=== PATIENT | female | born 1945 | race Caucasian/White ===

== ENCOUNTER 2022-03-01 08:50 | Outpatient (CLI) | payer MEDICARE | END 2022-03-01 08:51 | disposition home or self-care (01) | LOC: CSHMAMMO 08:50 | PROVIDERS: ATTEND Family Medicine | DX: Z12.31 Encounter for screening mammogram for malignant neoplasm of breast (principal); Z80.3 Family history of malignant neoplasm of breast | CPT/HCPCS: 77063; 77067 ==

== ENCOUNTER 2022-03-04 08:25 | Outpatient (CLI) | payer MEDICARE ==
[2022-03-04] MEDS ORDERED: Iopamidol 300 61% 100 ML VIAL FS ONE (14:59)
== END 2022-03-04 08:26 | disposition home or self-care (01) ==
LOC: CSHCT 08:25
PROVIDERS: ATTEND Family Medicine
DX: R10.12 Left upper quadrant pain (principal); K76.0 Fatty (change of) liver, not elsewhere classified; K76.89 Other specified diseases of liver; K57.30 Diverticulosis of large intestine without perforation or abscess without bleeding
CPT/HCPCS: 74177; 82565; Q9967

== ENCOUNTER 2022-04-02 08:22 | Outpatient (CLI) | payer MEDICARE | END 2022-04-02 08:23 | disposition home or self-care (01) | LOC: CSHULT 08:22 | PROVIDERS: ATTEND Family Medicine | DX: K80.70 Calculus of gallbladder and bile duct without cholecystitis without obstruction (principal); N83.201 Unspecified ovarian cyst, right side; K83.8 Other specified diseases of biliary tract; Z78.0 Asymptomatic menopausal state | CPT/HCPCS: 76705; 76856 ==

== ENCOUNTER 2023-03-14 09:41 | Outpatient (CLI) | payer MEDICARE | END 2023-03-14 09:42 | disposition home or self-care (01) | LOC: CSHMAMMO 09:41 | PROVIDERS: ATTEND Family Medicine | DX: Z12.31 Encounter for screening mammogram for malignant neoplasm of breast (principal); Z80.3 Family history of malignant neoplasm of breast | CPT/HCPCS: 77063; 77067 ==

== ENCOUNTER 2023-07-21 08:58 | Outpatient (CLI) | payer MEDICARE | END 2023-07-21 08:59 | disposition home or self-care (01) | LOC: CSHMAMMO 08:58 | PROVIDERS: ATTEND Family Medicine | DX: Z13.820 Encounter for screening for osteoporosis (principal); M85.89 Other specified disorders of bone density and structure, multiple sites; N95.9 Unspecified menopausal and perimenopausal disorder | CPT/HCPCS: 77080 ==

== ENCOUNTER 2024-03-16 09:46 | Outpatient (CLI) | payer MEDICARE | END 2024-03-16 09:47 | disposition home or self-care (01) | LOC: CSHMAMMO 09:46 | PROVIDERS: ATTEND Family Medicine | DX: Z12.31 Encounter for screening mammogram for malignant neoplasm of breast (principal); Z80.3 Family history of malignant neoplasm of breast | CPT/HCPCS: 77063; 77067 ==

== ENCOUNTER 2025-03-28 12:03 | Outpatient (CLI) | payer MEDICARE | END 2025-03-28 12:04 | disposition home or self-care (01) | LOC: CSHMAMMO 12:03 | PROVIDERS: ATTEND Family Medicine | DX: Z12.31 Encounter for screening mammogram for malignant neoplasm of breast (principal); Z80.3 Family history of malignant neoplasm of breast | CPT/HCPCS: 77063; 77067 ==